=== PATIENT | male | born 1960 | race Caucasian/White ===

== ENCOUNTER 2020-01-25 11:45 | Emergency (ER) | payer SELFPAY ==
[2020-01-25] MEDS ORDERED: Lidocaine 1% 20 ML MDV ONE (12:04)
--- NOTE | 2020-01-25 12:20 | RAD ---
Exam:Right hand 3 views HISTORY: Dogbite. COMPARISON: None FINDINGS: No fracture, cortical irregularity or periosteal reaction. No radiopaque foreign bodies. No centimeters soft tissue injury. IMPRESSION: No fractures or foreign body.
--- NOTE | 2020-01-25 12:22 | RAD ---
Exam:3 views left hand HISTORY: Dog bite. COMPARISON: None FINDINGS: There is subcutaneous emphysema soft tissue swelling involving the second and third digit c ompatible with soft tissue injury. Joint spaces are preserved. No fracture, cortical irregularity or periosteal reaction. No radiopaque foreign body. IMPRESSION: Soft tissue injury. No radiopaque foreign body.
[2020-01-25] MEDS ORDERED: Bacitracin 1 PK ONE (12:58)
[2020-01-25] MEDS ORDERED: traMADol HCl 50 MG TAB ONE (12:58)
== END 2020-01-25 13:09 | disposition home or self-care (01) ==
LOC: MADERS 11:45
DX: S61.052A Open bite of left thumb without damage to nail, initial encounter (principal); S61.412A Laceration without foreign body of left hand, initial encounter; F17.210 Nicotine dependence, cigarettes, uncomplicated; I48.91 Unspecified atrial fibrillation; E10.9 Type 1 diabetes mellitus without complications; Z85.118 Personal history of other malignant neoplasm of bronchus and lung; Z79.01 Long term (current) use of anticoagulants; Z79.899 Other long term (current) drug therapy; W54.0XXA Bitten by dog, initial encounter
CPT/HCPCS: 12002